=== PATIENT | male | born 1980 | race Hispanic/Latino ===

== ENCOUNTER 2019-04-17 03:19 | Inpatient (IN) | payer SELFPAY ==
[~2019-04-17] VITALS: Ht 162.6 cm; Wt 65.8 kg
[2019-04-17] MEDS ORDERED: METHYLPREDNISOLONE SOD SUCC 125MG/2ML VIAL ONE (04:16)
[2019-04-17] MEDS ORDERED: SODIUM CHLORIDE 0.9% 1000ML 1,000 ML IV ONE (04:17)
[2019-04-17] MEDS ORDERED: IPRATROPIUM/ALBUTEROL SULFATE 3 ML SOLUTION IH ONE ×2 (04:29→10:58)
[2019-04-17 04:39] LABS: BASOPHILS % (AUTO) 0.3 % (0.0-5.0); EOSINOPHILS % (AUTO) 4.8 % (0.0-8.0); LYMPHOCYTES % (AUTO) 9.2 % (21.0-51.0); MEAN CORPUSCULAR HEMOGLOBIN 30.8 pg (27.0-33.0); MEAN CORPUSCULAR HGB CONC 34.5 g/dL (32.0-36.0); MEAN CORPUSCULAR VOLUME 89.4 fL (79-99); MONOCYTES % (AUTO) 5.1 % (3.0-13.0); NEUTROPHILS % (AUTO) 80.6 % (40.0-77.0); PLATELET COUNT (AUTO) 318 K/uL (130-400); RED BLOOD CELL COUNT(AUTO) 4.48 MIL/uL (4.50-6.20); RED CELL DISTRIBUTION WIDTH 13.2 % (11.0-15.5)
[2019-04-17 05:22] LABS: ALANINE AMINOTRANSFERASE 12 U/L (12-78); ASPARTATE AMINOTRANSFERASE 12 U/L (10-37); BILIRUBIN,DIRECT < 0.1 mg/dL (0.0-0.3); BILIRUBIN,TOTAL 0.2 mg/dL (0.2-1.0); CARBON DIOXIDE 15 mmol/L (21-32); CHLORIDE 117 mmol/L (101-111); CREATINE KINASE, TOTAL 215 U/L (21-232); CREATININE 0.4 mg/dL (0.5-1.5); GLOMERULAR FILTR. RATE CALC 257 mL/min (>60); GLUCOSE,RANDOM 98 mg/dL (70-105); SODIUM SERUM 143 mmol/L (136-145); TOTAL PROTEIN, SERUM 4.1 g/dL (6.0-8.3); UREA NITROGEN, BLOOD 7 mg/dL (7-18)
[2019-04-17 05:23] LABS: POTASSIUM 2.2 mmol/L (3.5-5.1)
[2019-04-17] MEDS ORDERED: ALBUTEROL SULFATE 0.083% 2.5 MG/3 ML INH IH ONE ×2 (05:23→11:00)
[2019-04-17] MEDS ORDERED: MAGNESIUM 2GM PREMIX 50ML 50 ML IV ONE (05:47)
[2019-04-17] MEDS ORDERED: NS-20 MEQ KCL 1000ML 1,000 ML IV ONE (07:51)
[2019-04-17] MEDS ORDERED: POTASSIUM CHLORIDE 20 MEQ ERTAB PO ONE ×2 (07:51→10:34)
[2019-04-17] MEDS: POTASSIUM CHLORIDE 20 MEQ ERTAB PO SCH ×3 (09:00→16:39)
[2019-04-17] MEDS ORDERED: LIDOCAINE HCL-MPF 1% 2ML VIAL IV PRN (09:00)
[2019-04-17] MEDS ORDERED: POTASSIUM CHLORIDE 20MEQ/100ML 100 ML IV PRN (09:00)
[2019-04-17] MEDS ORDERED: MAGNESIUM 2GM PREMIX 50ML 50 ML IV PRN (09:15)
[2019-04-17] MEDS ORDERED: ONDANSETRON HCL 4 MG/2 ML VIAL IV PRN (10:15)
[2019-04-17] MEDS ORDERED: ACETAMINOPHEN 325 MG TAB PO PRN (10:15)
[2019-04-17] MEDS ORDERED: GUAIFENESIN-DM 200/20 MG 10 ML PO PRN (10:15)
[2019-04-17] MEDS ORDERED: ENOXAPARIN SODIUM 30 MG/0.3 ML SQ ONE (10:35)
[2019-04-17] MEDS ORDERED: FAMOTIDINE 20MG TAB 20 MG TAB ONE (10:45)
--- NOTE | 2019-04-17 10:55 | NUR ---
SPOKES POT ONCE A DAY Addendum: 04/17/19 at 1057 by RENA SAWANT RT Amended: Links added.
[2019-04-17] MEDS: ALBUTEROL SULFATE 0.083% 2.5 MG/3 ML INH IH SCH ×3 (12:00→23:21)
[2019-04-17 13:57] LABS: AMPHET/METH SCREEN,URINE NEGATIVE (NEGATIVE); BARBITURATE SCREEN, URINE NEGATIVE (NEGATIVE); BENZODIAZEPINES SCREEN,URINE POSITIVE (NEGATIVE); CANNABINOID SCREEN,URINE NEGATIVE (NEGATIVE); COCAINE SCREEN,URINE NEGATIVE (NEGATIVE); OPIATE SCREEN,URINE NEGATIVE (NEGATIVE); PHENCYCLIDINE SCREEN,URINE NEGATIVE (NEGATIVE)
[2019-04-17 14:20] VITALS: BP 107/66
[2019-04-17 16:00] VITALS: BP 127/57
[2019-04-17 16:09] LABS: HEMATOCRIT 42.8 % (42-54); MEAN CORPUSCULAR HEMOGLOBIN 30.6 pg (27.0-33.0); MEAN CORPUSCULAR HGB CONC 34.8 g/dL (32.0-36.0); MEAN CORPUSCULAR VOLUME 87.9 fL (79-99); PLATELET COUNT (AUTO) 368 K/uL (130-400); RED BLOOD CELL COUNT(AUTO) 4.87 MIL/uL (4.50-6.20); WHITE BLOOD COUNT (AUTO) 11.1 K/uL (4.8-10.8)
[2019-04-17 16:09] LABS: ABG BASE EXCESS -5.6 mmol/L (-2.0-3.0); ABG HCO3 16.9 mmol/L (21.0-28.0); ABG PCO2 26 mmHg (35-48)
[2019-04-17 16:18] LABS: CREATININE 1.1 mg/dL (0.5-1.5); POTASSIUM 4.5 mmol/L (3.5-5.1)
[2019-04-17 16:22] LABS: BILIRUBIN,TOTAL 0.5 mg/dL (0.2-1.0); MAGNESIUM 2.1 mg/dL (1.80-2.40); PHOSPHORUS 0.8 mg/dL (2.5-4.9); TOTAL PROTEIN, SERUM 8.6 g/dL (6.0-8.3)
[2019-04-17] MEDS: METHYLPREDNISOLONE SOD SUCC 40MG/ML 1ML IVP SCH ×2 (16:39→23:44)
--- NOTE | 2019-04-17 19:45 | NUR ---
CONSULT DR CACERES IN TO MAKE ROUNDS. NEW ORDERS GIVEN, PLEASE REFER TO CPOE.
[2019-04-17 20:00] VITALS: BP 127/76
[2019-04-17] MEDS: FAMOTIDINE 20MG TAB 20 MG TAB PO SCH (20:59)
--- NOTE | 2019-04-17 20:59 | NUR ---
MEDS SHIFT ASSESSMENT DONE, PLEASE REFER TO CHART. DUE MEDS ADMINISTERED, TOLERATED WELL. KEPT RESTED AND COMFORTABLE IN BED. CALL LIGHT WITHIN REACH. WILL MONITOR PT. Addendum: 04/17/19 at 2234 by KHUSHBU HARRIS RN RN Amended: Links added.
[2019-04-17] MEDS ORDERED: SOD PHOSPHATE 45 MMOL/15 ML VI 15 MMOL in SODIUM CHLORIDE 0.9% 250 ML IV PRN (22:45)
[2019-04-17] MEDS ORDERED: POTASSIUM PHOS 15 mMOL+NS250ML 250 ML IV PRN (22:45)
[2019-04-17 23:52] LABS: APPEARANCE,URINE Clear (CLEAR); BILIRUBIN,URINE Negative (NEGATIVE); COLOR,URINE Yellow (YELLOW); GLUCOSE, URINE (UA) TRACE mg/dL (NEGATIVE); KETONES,URINE Negative (NEGATIVE); LEUKOCYTE ESTERASE ,URINE Negative (NEGATIVE); NITRATE,URINE Negative (NEGATIVE); OCCULT BLOOD,URINE Negative (NEGATIVE); PROTEIN,URINE Negative (NEGATIVE); UROBILINOGEN,URINE 0.2 mg/dL (0.2-1.0)
[2019-04-18] VITALS (7 sets, daily range): BP systolic 107–136; BP diastolic 59–80
--- NOTE | 2019-04-18 00:20 | NUR ---
SODIUM PHOSPHATE TRIED TO LOOK FOR SODIUM PHOSPHATE ORDERED BY MD BUT NONE AVAILABLE ON ALL OMNICE[facility]S IN 3RD, 4TH AND 2ND FLOORS, INCLUDING ER. RESOURCE NURSE MADE AWARE. WILL AWAIT FOR PHARMACY TO OPEN IN AM.
--- NOTE | 2019-04-18 02:00 | NUR ---
ROUNDS PT RESTING WELL, FAIRLY ASLEEP WITH RESPIRATIONS EVEN AND UNLABORED. KEPT RESTED AND UNDISTURBED FOR NOW. WILL MONITOR PT. CALL LIGHT WITHIN REACH.
--- NOTE | 2019-04-18 05:10 | NUR ---
DRAW PARK WORKER SUPERVISOR INFORMS MAIL INSERTER THAT PT IS REFUSING BLOOD DRAW. MAIL INSERTER WENT TO TALK TO PT AND EXPLAINED THE NEED FOR LAB RESULTS. PT AGREED FOR LAB TO BE DRAWN. PARK WORKER SUPERVISOR MADE AWARE.
[2019-04-18 05:35] LABS: BASOPHILS % (AUTO) 0.2 % (0.0-5.0); HEMATOCRIT 44.3 % (42-54); LYMPHOCYTES % (AUTO) 4.5 % (21.0-51.0); MEAN CORPUSCULAR HEMOGLOBIN 30.7 pg (27.0-33.0); MEAN CORPUSCULAR HGB CONC 34.2 g/dL (32.0-36.0); MEAN CORPUSCULAR VOLUME 89.7 fL (79-99); MONOCYTES % (AUTO) 2.7 % (3.0-13.0); NEUTROPHILS % (AUTO) 92.6 % (40.0-77.0); PLATELET COUNT (AUTO) 358 K/uL (130-400); RED BLOOD CELL COUNT(AUTO) 4.94 MIL/uL (4.50-6.20); RED CELL DISTRIBUTION WIDTH 13.1 % (11.0-15.5); WHITE BLOOD COUNT (AUTO) 15.4 K/uL (4.8-10.8)
[2019-04-18 05:46] LABS: MAGNESIUM 2.1 mg/dL (1.80-2.40); PHOSPHORUS 2.4 mg/dL (2.5-4.9); POTASSIUM 4.4 mmol/L (3.5-5.1); URIC ACID 3.7 mg/dL (2.6-7.2)
[2019-04-18] MEDS: ALBUTEROL SULFATE 0.083% 2.5 MG/3 ML INH IH SCH ×5 (06:20→23:47)
[2019-04-18] MEDS: METHYLPREDNISOLONE SOD SUCC 40MG/ML 1ML IVP SCH ×4 (08:19→21:12)
[2019-04-18] MEDS: FAMOTIDINE 20MG TAB 20 MG TAB PO SCH ×2 (08:19→21:12)
[2019-04-18] MEDS: ENOXAPARIN SODIUM 30 MG/0.3 ML SQ SCH (08:21)
--- NOTE | 2019-04-18 10:36 | NUR ---
DR EISENBERG IN TO SEE PATIENT ORDERERS RECEIVED FOR EEG AND MRI BRAIN, ORDERERS PLACED
--- NOTE | 2019-04-18 14:05 | NUR ---
INITIAL METW PATIENT ALONE, AAOX3, ANXIOUS, INDP OF ADLS, EMPLOYED P[employer] FOR [employer], STATES HAS HAD ASTHMA SINCE HE WAS E[age], ALWAYS USED A NEBULIZR, CURRENTLY USES HIS SONS , STATES THINK PROBLME HAPPENED BECAUS THE NEB FILTER IS DIRTY. STATES HIS PROBLEMS ALL HAPPNE BECAUSE HE HAS NO INSURCNE. SPOEK TO HIM ABOUT COMMUNITY RESOURCE PKT AND HOW TO GET ENROLLED IW A LOW COST CLNIC LIKE [facility] REINFORCED THE IMPORTANCE FOR HIM OF PURSUING PMD AND [facility] CM TO FOLLOW UP IN AM PRIOR TO DISCHARGE FOR WITH PKT Addendum: 04/18/19 at 1752 by AUSTIN MAYORGA RN CM Amended: Links added.
--- NOTE | 2019-04-18 14:30 | NUR ---
DR CACERES ROUNDED ON PATIENT NO NEW ORDERS
[2019-04-18] MEDS ORDERED: LEVOFLOXACIN 500 MG/D5W 100 ML 100 ML IV SCH (17:45)
[2019-04-19 03:41] VITALS: BP 111/61
[2019-04-19 05:05] LABS: BASOPHILS % (AUTO) 0.4 % (0.0-5.0); HEMATOCRIT 44.4 % (42-54); LYMPHOCYTES % (AUTO) 4.3 % (21.0-51.0); MEAN CORPUSCULAR HEMOGLOBIN 30.5 pg (27.0-33.0); MEAN CORPUSCULAR HGB CONC 34.4 g/dL (32.0-36.0); MEAN CORPUSCULAR VOLUME 88.7 fL (79-99); MONOCYTES % (AUTO) 4.4 % (3.0-13.0); NEUTROPHILS % (AUTO) 90.9 % (40.0-77.0); PLATELET COUNT (AUTO) 359 K/uL (130-400); RED BLOOD CELL COUNT(AUTO) 5.01 MIL/uL (4.50-6.20); RED CELL DISTRIBUTION WIDTH 13.2 % (11.0-15.5); WHITE BLOOD COUNT (AUTO) 13.8 K/uL (4.8-10.8)
[2019-04-19] MEDS: ALBUTEROL SULFATE 0.083% 2.5 MG/3 ML INH IH SCH ×3 (06:38→18:16)
[2019-04-19 07:00] VITALS: BP 102/66
[2019-04-19] MEDS ORDERED: ALBU6.7H9 IH (08:38)
[2019-04-19] MEDS ORDERED: PRED20TA3 PO (08:38)
[2019-04-19] MEDS: FAMOTIDINE 20MG TAB 20 MG TAB PO SCH ×2 (09:17→20:29)
[2019-04-19] MEDS: ENOXAPARIN SODIUM 30 MG/0.3 ML SQ SCH (09:21)
[2019-04-19 11:00] VITALS: BP 110/68
--- NOTE | 2019-04-19 12:34 | NUR ---
RD NOTIFICATION DIET: REGULAR. PO INTAKE 100% AND HAS GOOD APPETITE. PT WITH HISTORY OF DIARRHEA AND CONSTIPATION. PT STATED HE HAS DEPRESSION, ANXIETY, LOW ENERGY, NO MOTIVATION, SEDENTARY LIFESTYLE, ETC. PT CLAIMS SOMETIMES FEELING DISCOMFORT WITH CERTAIN FOODS BUT UNABLE TIN PINPOINT WHICH FOODS. PT WITH HX OF ASTHMA AND HAS DIFFICULTY BREATHING. PT HAS NOTICED DIFFICULTY BREATHING AFTER EATING CERTAIN MEALS. RECOMMEND TO CHECK THYROID HORMONE AND CHECK FOR FOOD ALLERGIES/ SENSITIVITIES DUE TO S/S RD ENCOURAGED PLENTY FLUIDS INTAKE, HIGH FIBER, BALANCED DIET, AND INCREASE PHYSICAL ACTIVITY TO HELP ALLEVIATE CONSTIPATION RECOMMEND A MULTIVITAMIN DAILY RD RECOMMENDED PT TO KEEP A FOOD DIARY AND RECORD ANY S/S WITH FOOD INTAKE RD WILL FOLLOW UP NEEDED, THANK YOU Addendum: 04/19/19 at [address] Amended: Links added.
[2019-04-19] MEDS: METHYLPREDNISOLONE SOD SUCC 40MG/ML 1ML IVP SCH ×2 (13:37→20:29)
[2019-04-19 16:00] VITALS: BP 129/79
[2019-04-19] MEDS ORDERED: FLU VACC QS2019-20 36MOS UP/PF 60 MCG/0.5 ML ML IM ONE ×2 (17:30→20:36)
[2019-04-19 20:00] VITALS: BP 113/73
[2019-04-19] MEDS: DOCUSATE SODIUM 100 MG CAP PO SCH (20:29)
--- NOTE | 2019-04-19 22:46 | NUR ---
TRANSFER OF CARE TRANSFER OF CARE AND REPORT GIVEN BY ENMANUEL PIMENTEL.
[2019-04-20] VITALS: BP 134/81
[2019-04-20] MEDS: ALBUTEROL SULFATE 0.083% 2.5 MG/3 ML INH IH SCH ×4 (00:22→18:13)
[2019-04-20 04:00] VITALS: BP 111/63
[2019-04-20 05:29] LABS: BASOPHILS % (AUTO) 0.1 % (0.0-5.0); EOSINOPHILS % (AUTO) 0.1 % (0.0-8.0); HEMATOCRIT 46.5 % (42-54); LYMPHOCYTES % (AUTO) 5.8 % (21.0-51.0); MEAN CORPUSCULAR HEMOGLOBIN 30.4 pg (27.0-33.0); MEAN CORPUSCULAR HGB CONC 33.8 g/dL (32.0-36.0); NUCLEATED RED BLOOD CELLS 0.1 % (0.0-0.19); PLATELET COUNT (AUTO) 371 K/uL (130-400); RED BLOOD CELL COUNT(AUTO) 5.16 MIL/uL (4.50-6.20); RED CELL DISTRIBUTION WIDTH 13.3 % (11.0-15.5); WHITE BLOOD COUNT (AUTO) 13.1 K/uL (4.8-10.8)
[2019-04-20 05:34] LABS: POTASSIUM 3.7 mmol/L (3.5-5.1)
[2019-04-20 07:30] VITALS: BP 114/69
--- NOTE | 2019-04-20 08:00 | NUR ---
AM SHIFT ASSESSMENT.-
[2019-04-20] MEDS: METHYLPREDNISOLONE SOD SUCC 40MG/ML 1ML IVP SCH (09:00)
[2019-04-20] MEDS: DOCUSATE SODIUM 100 MG CAP PO SCH (09:00)
[2019-04-20] MEDS: FAMOTIDINE 20MG TAB 20 MG TAB PO SCH (09:00)
[2019-04-20] MEDS: ENOXAPARIN SODIUM 30 MG/0.3 ML SQ SCH (09:01)
--- NOTE | 2019-04-20 10:00 | NUR ---
UP AD AKBAR IN ROOM.
[2019-04-20 11:00] VITALS: BP 108/57
--- NOTE | 2019-04-20 12:00 | NUR ---
TOLERATING MEALS WELL.
[2019-04-20 16:00] VITALS: BP 99/59
--- NOTE | 2019-04-20 16:00 | NUR ---
NO SEIZURE ACTIVITY, AMBULATORY IN ROOM. DISCHARGE ORDERS NOW IN PLACE. STATES HE WILL STAY FOR DINNER.
--- NOTE | 2019-04-20 18:34 | NUR ---
DISCHARGED NOW USING TEACH BACK. MEDICATION AND DC INST. GIVEN, VERBALIZES UNDERSTANDING OF ALL MEDS. AND WILL FOLLOW UP WITH PCP IN 3 TO 5 DAYS, SALINE LOCK REMOVED. SITE HEALTHY.
== END 2019-04-20 18:55 | disposition home or self-care (01) | DRG 640 ==
LOC: EDH 03:19 → EDHIP 03:20 → 3AH 14:09
PROVIDERS: ADMIT Hospitalist; ATTEND Hospitalist
PROC: 4A00X4Z Measurement of Central Nervous Electrical Activity, External Approach (ICD-10-PCS; principal; 2019-04-19)
PROC: 3E02340 Introduction of Influenza Vaccine into Muscle, Percutaneous Approach (ICD-10-PCS; 2019-04-19)
DX: E87.6 Hypokalemia (principal); G93.41 Metabolic encephalopathy; J45.51 Severe persistent asthma with (acute) exacerbation; E87.8 Other disorders of electrolyte and fluid balance, not elsewhere classified; D72.829 Elevated white blood cell count, unspecified; E83.51 Hypocalcemia; F17.200 Nicotine dependence, unspecified, uncomplicated; N28.9 Disorder of kidney and ureter, unspecified; Z91.19 Patient's noncompliance with other medical treatment and regimen; F41.9 Anxiety disorder, unspecified; Z23 Encounter for immunization
CPT/HCPCS: 36415; 36600; 70450; 70551; 71045; 80048; 80053; 80076; 80305; 81003; 82306; 82550; 82803; 83735; 84100; 84443; 84484; 84550; 85025; 85027; 93005; 93306; 93880; 94060; 94640; 94664; 94727; 94729; 95819; 99291; G0008; G0378; J1650; J1956; J2920; J2930; J3475; J3480; J7030; Q2035

== ENCOUNTER 2019-10-15 05:08 | Emergency (ER) | payer OTHER ==
[~2019-10-15 05:08] MED LIST: ALBU6.7H9 IH; PRED20TA3 PO
[2019-10-15 05:41] LABS: BASOPHILS % (AUTO) 0.5 % (0.0-5.0); EOSINOPHILS % (AUTO) 9.4 % (0.0-8.0); HEMATOCRIT 38.2 % (42-54); LYMPHOCYTES % (AUTO) 31.3 % (21.0-51.0); MEAN CORPUSCULAR HEMOGLOBIN 29.4 pg (27.0-33.0); MEAN CORPUSCULAR HGB CONC 34.8 g/dL (32.0-36.0); MEAN CORPUSCULAR VOLUME 84.3 fL (79-99); MONOCYTES % (AUTO) 6.2 % (3.0-13.0); NEUTROPHILS % (AUTO) 52.2 % (40.0-77.0); PLATELET COUNT (AUTO) 320 K/uL (130-400); RED BLOOD CELL COUNT(AUTO) 4.53 MIL/uL (4.50-6.20); WHITE BLOOD COUNT (AUTO) 7.9 K/uL (4.8-10.8)
[2019-10-15 05:53] LABS: CREATININE 1.1 mg/dL (0.5-1.5); POTASSIUM 3.9 mmol/L (3.5-5.1)
[2019-10-15 05:59] LABS: ALBUMIN 3.8 g/dL (3.5-5.0); BILIRUBIN,TOTAL 0.3 mg/dL (0.2-1.0); MAGNESIUM 1.7 mg/dL (1.80-2.40); PHOSPHORUS 2.7 mg/dL (2.5-4.9); TOTAL PROTEIN, SERUM 7.8 g/dL (6.0-8.3)
[2019-10-15] MEDS ORDERED: MAGNESIUM 2GM PREMIX 50ML 50 ML IV ONE (06:13)
== END 2019-10-15 08:04 | disposition home or self-care (01) ==
LOC: EDH 05:08
DX: M62.81 Muscle weakness (generalized) (principal); E83.42 Hypomagnesemia; J45.909 Unspecified asthma, uncomplicated; F41.9 Anxiety disorder, unspecified; F43.10 Post-traumatic stress disorder, unspecified
CPT/HCPCS: 36415; 80053; 82550; 83735; 84100; 85025; 93005; 96365; 99284; J3475

== ENCOUNTER 2019-11-25 23:22 | Emergency (ER) | payer SELFPAY ==
[2019-11-26] MEDS ORDERED: AMPICILLIN SODIUM/SULBACTAM NA 1.5GM VIAL ONE (00:05)
[2019-11-26] MEDS ORDERED: TETANUS/DIPHTHERIA TOXOID [ADULT] 0.5 ML VIAL IM ONE (00:05)
[2019-11-26] MEDS ORDERED: SODIUM CHLORIDE 0.9% 100 ML IV ONE (00:05)
== END 2019-11-26 01:13 | disposition home or self-care (01) ==
LOC: EDH 23:22
DX: L03.113 Cellulitis of right upper limb (principal); F41.9 Anxiety disorder, unspecified; J45.909 Unspecified asthma, uncomplicated; W54.0XXA Bitten by dog, initial encounter; Y93.89 Activity, other specified; Y92.89 Other specified places as the place of occurrence of the external cause; Y99.8 Other external cause status
CPT/HCPCS: 73130; 73140; 90471; 90714; 96374; 99284; J0295

== ENCOUNTER 2025-01-16 14:22 | Emergency (ER) | payer BC ==
[~2025-01-16] VITALS: Ht 165.1 cm; Wt 85.7 kg
[~2025-01-16 14:22] MED LIST changes: +ALBU6.7H14 IH; -ALBU6.7H9 IH
--- NOTE | 2025-01-16 14:38 | ERN ---
ED Note History of Present Illness Stated Complaint: INGUINAL HERNIA Chief Complaint: Abdominal Pain Time Seen by MD: 14:27 Dictation: PATIENT IS A 44-YEAR-OLD MALE COMING IN TODAY WITH COMPLAINTS OF A RIGHT INGUINAL PELVIC HERNIA HE HAS HAD SINCE 2018. HE STATES HE HAS NEVER HAD IT CHECKED OUT TODAY WHEN HE WAS NOT ABLE TO SLEEP WITH THE YESTERDAY NO NAUSEA VOMITING NO FEVER NO CHILLS. HE SAID NORMALLY IT COMES OUT WHEN HE COUGHS. NO PRIMARY CARE DOCTOR. Allergies: Coded Allergies: No Known Drug Allergies (Verified Allergy, Unknown, 04/17/19) Home Meds Active Scripts Prednisone (Prednisone) 20 Mg Tablet, 20 MG PO DAILYBKFST for 5 Days, #5 TAB 0 Refills Prov:MADHU VICTORIA MD 04/19/19 Albuterol Sulfate (Proventil Hfa) 6.7 Gm Hfa.aer.ad, 6.7 GM IH Q6HPRN PRN for WHEEZING, #1 INHALER 0 Refills Prov:MADHU VICTORIA MD 04/19/19 Past Medical History Past Medical History: Anxiety, Schizophrenia Additional Past Medical Hx: PTSD, HERNIA Surgical History: None RN Note Reviewed/Agreed w/PFSH: Yes Review of System Dictation CONSTITUTIONAL: NEGATIVE EXCEPT FOR HPI HEAD/FACE: NEGATIVE EXCEPT FOR HPI EENT: NEGATIVE EXCEPT FOR HPI RESPIRATORY: NEGATIVE EXCEPT FOR HPI GASTROINTESTINAL/ABDOMINAL: NEGATIVE EXCEPT FOR HPI RIGHT INGUINAL PELVIC HERNIA GENITOURINARY: NEGATIVE EXCEPT FOR HPI MUSCULOSKELETAL: NEGATIVE EXCEPT FOR HPI INTEGUMENTARY: NEGATIVE EXCEPT FOR HPI NEUROLOGICAL/PSYCH: NEGATIVE EXCEPT FOR HPI HEMATOLOGIC/LYMPHATIC: NEGATIVE EXCEPT FOR HPI ALL SYSTEMS NEGATIVE, EXCEPT NOTED ABOVE. 13 POINT REVIEW OF SYSTEMS ASSESSED AND ALL NEGATIVE EXCEPT FOR ABOVE. Initial Vital Sign VS Vital Signs Date Time Temp Pulse Resp B/P (MAP) Pulse Ox O2 Delivery O2 Flow Rate FiO2 01/16/25 14:27 98.1 103 18 124/79 98 Room Air 0 01/16/25 14:38 21 Physical Exam Dictation VITAL SIGNS REVIEWED GENERAL APPEARANCE: ALERT, ORIENTED X 3, MILD ACUTE DISTRESS, WELL DEVELOPED, NOURISHED. HEAD AND FACE: NON-TRAUMATIC. EYES: PERRL, PINK CONJUNCTIVAS, EYELID NO TRAUMA, ANTERIOR CHAMBER WITH ARCUS SENILIS. EARS: PINNAS INTACT AND NO SIGNS OF TRAUMA OR ERYTHEMA EAR CANALS CLEAR AND NO DISCHARGE TM NO ERYTHEMA NOSE: NO DISCHARGE, NO BLEEDING. OROPHARYNX: MOUTH NORMAL, TONGUE PINK, PHARYNX CLEAR,NO ERYTHEMA, TONSILS NO EXUDATES, NO ABSCESSES NOTED, MUCOUS MEMBRANE MOIST NECK: SUPPLE, NON-TENDER, NO THYROMEGALY, NO MASSES, NO JVD, NO BRUITS BREAST:DEFERRED CHEST:NO TENDERNESS, NO CREPITUS, NO PARADOXICAL MOVEMENT, NO RETRACTIONS LUNGS:CLEAR, WELL-VENTILATED, SYMMETRIC, NO RALES, NO WHEEZING, NO RHONCHI, NO STRIDOR, GOOD BREATH SOUNDS BILATERALLY HEART: REGULAR RATE, REGULAR RHYTHM, NO MURMUR, NO GALLOPS VASCULAR: NO PERIPHERAL EDEMA, ABDOMEN: SOFT, POSITIVE BOWEL SOUNDS, NONDISTENDED, NO GUARDING, NONTENDER, NO REBOUND, NO MASSES NO HEPATOMEGALY, NO SPLENOMEGALY, NO BENAVIDEZ'S SIGN, NO HERNIAS. RECTAL: DEFERRED GENITAL: DEFERRED NEUROLOGICAL: NORMAL SPEECH, MOTOR FUNCTION INTACT, SENSORY FUNCTION INTACT MUSCULOSKELETAL: NECK NONTENDER, FULL RANGE OF MOTION, BACK NONTENDER, FULL RANGE OF MOTION, EXTREMITIES: NONTENDER, FULL RANGE OF MOTION SKIN: COLOR PINK, DRY, NO TURGOR, NO RASH, NO LACERATIONS, NO ABRASIONS, NO CONTUSIONS. LYMPHATIC: DEFERRED Results (Laboratory/Radiology) Laboratory/Radiology Laboratory Tests Test 01/16/25 14:55 White Blood Count 7.6 K/uL (4.8-10.8) Red Blood Count 4.86 MIL/uL (4.50-6.20) Hemoglobin 13.0 g/dL (14.0-18.0) L Hematocrit 39.6 % (42-54) L Mean Corpuscular Volume 81.5 fL (79-99) Mean Corpuscular Hemoglobin 26.7 pg (27.0-33.0) L Mean Corpuscular Hemoglobin Concent 32.8 g/dL (32.0-36.0) Red Cell Distribution Width 15.7 % (11.0-15.5) H Platelet Count 398 K/uL (130-400) Mean Platelet Volume 10.1 fL (7.5-10.5) Immature Granulocyte % (Auto) 0.3 % (0-1) Neutrophils (%) (Auto) 47.8 % (40.0-77.0) Lymphocytes (%) (Auto) 30.6 % (21.0-51.0) Monocytes (%) (Auto) 9.6 % (3.0-13.0) Eosinophils (%) (Auto) 11.2 % (0.0-8.0) H Basophils (%) (Auto) 0.5 % (0.0-5.0) Neutrophils # (Auto) 3.6 K/uL (1.8-7.7) Lymphocytes # (Auto) 2.3 K/uL (1.0-4.8) Monocytes # (Auto) 0.7 K/uL (0.1-1.0) Eosinophils # (Auto) 0.85 K/uL (0.00-0.70) H Basophils # (Auto) 0.04 K/uL (0.00-0.20) Absolute Immature Granulocyte (auto 0.02 K/uL (0-1) Nucleated Red Blood Cells 0.0 % (0.0-0.19) Urine Color LIGHT-YELLOW (YELLOW) Urine Appearance CLEAR (CLEAR) Urine pH 5.5 (5.0-8.0) Urine Specific [place] 1.026 (1.001-1.031) Urine Protein NEGATIVE mg/dL (NEGATIVE) Urine Glucose (UA) NEGATIVE mg/dL (NEGATIVE) Urine Ketones NEGATIVE mg/dL (NEGATIVE) Urine Occult Blood NEGATIVE (NEGATIVE) Urine Nitrate NEGATIVE (NEGATIVE) Urine Bilirubin NEGATIVE mg/dL (NEGATIVE) Urine Urobilinogen 0.2 mg/dL (0.2-1.0) Urine Leukocyte Esterase NEGATIVE [place]/uL Urine RBC 0-1 /HPF (0-1) Urine WBC 0-1 /HPF (0-1) Urine Squamous Epithelial Cells RARE /HPF (0-2) Urine Bacteria None /HPF (None Seen) Sodium Level 139 mmol/L (136-145) Potassium Level 3.5 mmol/L (3.5-5.1) Chloride Level 105 mmol/L (101-111) Carbon Dioxide Level 25 mmol/L (21-32) Blood Urea Nitrogen 13 mg/dL (7-18) Creatinine 0.9 mg/dL (0.5-1.3) Glomerular Filtration Rate Calc 109 mL/min (>90) Random Glucose 101 mg/dL (70-105) Total Calcium 8.8 mg/dL (8.5-10.1) Lipase 36 U/L (16-77) 1525/ULTRASOUND THE ABDOMINAL WALL DEMONSTRATES WALL DEFECT 3 X 3 X 2.8 CM. NO HERNIATION Labs Reviewed?: Yes ED Course ED Course Orders Procedure Category Date Status Time Cbc With Differential LAB 01/16/25 Complete 14:32 Urinalysis Profile LAB 01/16/25 Complete 14:32 Lipase LAB 01/16/25 Complete 14:32 Basic Metabolic Panel LAB 01/16/25 Complete 14:32 Us Abd Limited/Abd US 01/16/25 Taken Wall 14:32 Ibuprofen 800 Mg Tab PHA 01/16/25 Complete (Motrin) 15:00 Current Medications Medications (Trade) Dose Ordered Sig/Hero Route PRN Reason Start Time Stop Time Status Last Admin Dose Admin Ibuprofen (moTRIN) 800 mg ONCE ONCE PO 01/16/25 15:00 01/16/25 15:01 DC 01/16/25 14:44 Vital Signs Date Time Temp Pulse Resp B/P (MAP) Pulse Ox O2 Delivery O2 Flow Rate FiO2 01/16/25 14:38 98.1 103 18 124/79 98 Room Air* 0 21 01/16/25 14:27 98.1 103 18 124/79 98 Room Air 0 Medical Decision Making MDM MDM: DIFFERENTIAL DIAGNOSIS: ABDOMINAL WALL HERNIA/INCARCERATION/STRANGULATION/ELECTROLYTE IMBALANCE/DEHYDRATION/INFECTION RATIONALE: TESTS CONSIDERED AND ORDERED SECONDARY TO SHARED DECISION MAKING INCLUDE: ULTRASOUND/LABS PREVIOUS OUTSIDE RECORDS REVIEWED: OLD ER VISITS. RISK OF COMPLICATION AND/OR MORBIDITY OR MORTALITY OF PATIENT MANAGEMENT: NONE MEDICATIONS-PER MEDICATION RECONCILIATION NEED FOR HOSPITALIZATION: PATIENT DOES NOT MEET CRITERIA FOR HOSPITALIZATION. NO NEED FOR EMERGENCY MAJOR/MINOR SURGERY: NO THERE ARE NO SOCIAL CONCERNS WITH THIS PATIENT. PRESCRIPTION DRUG MANAGEMENT IBUPROFEN/REFERRAL TO PRESCRIPTIONS WILL INCLUDE SYMPTOMATIC CARE PATIENT'S PRIOR EXTERNAL MEDICAL RECORDS FROM OTHER ER VISITS WERE REVIEWED BY ME INDICATED. PRIOR TESTING AND RESULTS FROM PREVIOUS VISITS WERE REVIEWED. PRIOR TESTS WERE TAKEN INTO ACCOUNT WITH MEDICAL DECISION MAKING AND RESOURCE UTILIZATION, INDEPENDENT HISTORIAN/HISTORIANS WERE USED TO OBTAIN COMPLETE MEDICAL HISTORY. I INDEPENDENTLY INTERPRETED THE TEST THAT WERE PERFORMED, RESULTS WERE REVIEWED BY ME AND CONSIDERED FINDINGS ON RADIOLOGY IF ORDERED. MEDICAL MANAGEMENT AND EXAMINATION INTERPRETATION DISCUSSIONS WERE HAD BY ME WITH OTHER QUALIFIED HEALTHCARE PROFESSIONALS INDICATED FOR THE PATIENT'S CARE. DX & DISP Disposition: Discharge Departure Impression: Primary Impression: Inguinal hernia Condition: Stable Scripts Ibuprofen (Ibuprofen 800 mg Tab) 800 Mg Tab 800 MG PO Q8H PRN for fever or pain, #30 TAB 0 Refills Prov: PRAVIN HERNANDEZ NP 01/16/25 Additional Instructions: FOLLOW-UP WITH PRIMARY CARE PROVIDER IN 1 TO 2 DAYS. TAKE MEDICATIONS DIRECTED HERE IN THE EMERGENCY ROOM. OKAY TO CONTINUE HOME MEDICATIONS UNLESS OTHERWISE DISCUSSED DURING YOUR VISIT IN THE EMERGENCY ROOM TODAY. RETURN TO YOUR NEAREST EMERGENCY ROOM IF SYMPTOMS WORSEN OR IF THERE IS NO IMPROVEMENT. CALL 911 IF YOU NEED IMMEDIATE ASSISTANCE. TAKE TYLENOL OR MOTRIN [id number] NEEDED AND IF NO CONTRAINDICATIONS ARE PRESENT. INCREASE ORAL HYDRATION. A WOUND CULTURE OR URINE CULTURE WAS ORDERED HERE IN THE EMERGENCY ROOM DEPARTMENT PLEASE FOLLOW-UP WITH PRIMARY CARE PROVIDER AND ADVISE THEM TO GET REPEAT PORTS FROM OUR FACILITY. IF YOU HAD ANY JEFFERSON WRAP/SPLINTS THAT WERE APPLIED HERE, PLEASE DO NOT REMOVE THEM UNTIL YOU SEE YOUR PRIMARY CARE OR SPECIALTY. SUGGEST WEARING ABDOMINAL BINDER AT ALL TIMES. NO LIFTING GREATER THAN 10 LB, CALL SURGEON FOR AN APPOINTMENT AND FOLLOW UP IN THE NEXT 1-2 DAYS. TAKE IBUPROFEN WITH FOOD NEEDED FOR PAIN. Referrals: SELF,REFERRAL (PCP) SARAH MCNEAL MD Time of Disposition: 15:25 I have reviewed the case, and I agree with, Diagnosis and Plan PRAVIN HERNANDEZ NP Jan 16, 2025 14:38
[2025-01-16 15:03] LABS: IMMATURE GRANULOCYTE ABSOLUTE 0.02 K/uL (0-1); NUCLEATED RED BLOOD CELLS 0.0 % (0.0-0.19); PLATELET COUNT (AUTO) 398 K/uL (130-400); RED BLOOD CELL COUNT(AUTO) 4.86 MIL/uL (4.50-6.20); RED CELL DISTRIBUTION WIDTH 15.7 % (11.0-15.5); WHITE BLOOD COUNT (AUTO) 7.6 K/uL (4.8-10.8)
[2025-01-16 15:04] LABS: APPEARANCE,URINE CLEAR (CLEAR); GLUCOSE, URINE (UA) NEGATIVE (NEGATIVE); LEUKOCYTE ESTERASE ,URINE NEGATIVE Leu/uL (NEGATIVE); NITRATE,URINE NEGATIVE (NEGATIVE); OCCULT BLOOD,URINE NEGATIVE (NEGATIVE)
[2025-01-16 15:05] LABS: ADD UA MICROSCOPIC YES
[2025-01-16 15:06] LABS: SQUAMOUS EPITHELIAL CELL,UR RARE /HPF (0-2)
[2025-01-16 15:12] LABS: CREATININE 0.9 mg/dL (0.5-1.3); GLOMERULAR FILTR. RATE CALC 109.0 mL/min (>90); GLUCOSE,RANDOM 101.0 mg/dL (70-105); SODIUM SERUM 139.0 mmol/L (136-145); UREA NITROGEN, BLOOD 13.0 mg/dL (7-18)
[2025-01-16] MEDS ORDERED: IBUP-2077 PO (15:26)
--- NOTE | 2025-01-16 15:42 | HMCIMG ---
EXAM: US examination, one body part CLINICAL HISTORY: RIGHT LOWER PELVIC HERNIA TECHNIQUE: Real-time ultrasound examination performed with image documentation. COMPARISON: None provided. FINDINGS: Right inguinal canal hernia measuring 6.7 x 2.9 x 4.6 cm. The wall defect measures 3.3 x 2.8 cm. The hernia sac appears to contain mesenteric fat. IMPRESSION: 1. Right inguinal hernia measuring 6.7 x 2.9 x 4.6 cm with 3.3 x 2.8 cm wall defect, containing mesenteric fat. Consider CT pelvis without contrast for further evaluation /[place]
[2025-01-16 15:51] VITALS: BP 127/74; PULSE 88; RESP 18; TEMP 98.1; O2SAT 98
== END 2025-01-16 15:54 | disposition home or self-care (01) ==
LOC: EDH 14:22
DX: K40.90 Unilateral inguinal hernia, without obstruction or gangrene, not specified as recurrent (principal); F20.9 Schizophrenia, unspecified; F41.9 Anxiety disorder, unspecified
CPT/HCPCS: 36415; 76705; 80048; 81001; 83690; 85025; 99284

== ENCOUNTER 2025-02-23 21:04 | Emergency (ER) | payer BC ==
[~2025-02-23] VITALS: Ht 165.1 cm; Wt 85.7 kg
[~2025-02-23 21:04] MED LIST changes: +IBUP-2077 PO
[2025-02-23 21:25] LABS: IMMATURE GRANULOCYTE ABSOLUTE 0.03 K/uL (0-1); NUCLEATED RED BLOOD CELLS 0.0 % (0.0-0.19); PLATELET COUNT (AUTO) 431 K/uL (130-400); RED BLOOD CELL COUNT(AUTO) 4.44 MIL/uL (4.50-6.20); RED CELL DISTRIBUTION WIDTH 15.1 % (11.0-15.5); WHITE BLOOD COUNT (AUTO) 13.4 K/uL (4.8-10.8)
[2025-02-23 21:33] LABS: CREATININE 1.2 mg/dL (0.5-1.3); GLOMERULAR FILTR. RATE CALC 77.0 mL/min (>90); GLUCOSE,RANDOM 107.0 mg/dL (70-105); SODIUM SERUM 139.0 mmol/L (136-145); UREA NITROGEN, BLOOD 9.0 mg/dL (7-18)
[2025-02-23 21:42] LABS: CREATINE KINASE, TOTAL 175.0 U/L (21-232)
--- NOTE | 2025-02-23 22:18 | NUR ---
UA CUP PROVIDED
--- NOTE | 2025-02-23 22:20 | NUR ---
PT WITH RADIOLOGY AT THIS TIME
--- NOTE | 2025-02-23 22:23 | NUR ---
PT RETURNED TO LOBBY
--- NOTE | 2025-02-23 22:28 | NUR ---
UA COLLECTED AND SENT
--- NOTE | 2025-02-23 22:39 | HMCIMG ---
EXAM: CR Chest, single view. CLINICAL HISTORY: Chest pain. COMPARISON: Prior chest radiograph dated April 17, 2019. FINDINGS: Patchy, ill-defined infiltrates in the lingula, obscuring the left heart border. No pleural effusion or pneumothorax. The cardiomediastinal silhouette is within normal limits. No acute osseous abnormality. IMPRESSION: Patchy, ill-defined infiltrates in the lingula, obscuring the left heart border. Compared to the prior study, there are patchy, ill-defined infiltrates in the lingula. /[place]
[2025-02-23 22:44] LABS: APPEARANCE,URINE CLEAR (CLEAR); GLUCOSE, URINE (UA) NEGATIVE (NEGATIVE); LEUKOCYTE ESTERASE ,URINE NEGATIVE Leu/uL (NEGATIVE); NITRATE,URINE NEGATIVE (NEGATIVE); OCCULT BLOOD,URINE NEGATIVE (NEGATIVE)
[2025-02-23 22:45] LABS: ADD UA MICROSCOPIC NO
[2025-02-23 22:51] LABS: AMPHET/METH SCREEN,URINE NEGATIVE (NEGATIVE); BARBITURATE SCREEN, URINE NEGATIVE (NEGATIVE); CANNABINOID SCREEN,URINE NEGATIVE (NEGATIVE); COCAINE SCREEN,URINE NEGATIVE (NEGATIVE)
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
--- NOTE | 2025-02-23 23:40 | NUR ---
DR LY AT BEDSIDE.
[2025-02-23] MEDS ORDERED: CLON1TAB23 PO (23:52)
[2025-02-24 00:30] VITALS: BP 121/84; PULSE 84; RESP 18; TEMP 98.2; O2SAT 98
--- NOTE | 2025-02-24 08:10 | EKG ---
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
== END 2025-02-24 00:40 | disposition home or self-care (01) ==
LOC: EDH 21:04
DX: R07.89 Other chest pain (principal); F13.20 Sedative, hypnotic or anxiolytic dependence, uncomplicated; F41.9 Anxiety disorder, unspecified; F32.A Depression, unspecified; J45.909 Unspecified asthma, uncomplicated; E87.6 Hypokalemia; Z79.899 Other long term (current) drug therapy
CPT/HCPCS: 36415; 71045; 80048; 80305; 81003; 82550; 84484; 85025; 93005; 99284